=== PATIENT | male | born 1945 | race Caucasian/White ===

== ENCOUNTER 2016-09-27 16:59 | Observation (INO) | payer OTHER, MEDICARE ==
[~2016-09-27] VITALS: Ht 175.3 cm; Wt 124.7 kg
[~2016-09-27 16:59] MED LIST: AUGMENTIN 875875 MG PO; BUSPIRONE15 MG PEG; BUSPIRONE15 MG PO; DIAZEPAM10 MG PO; DIFLUCAN 100MG100 MG PEG; DILTIAZEM HYDR PEG; DULOXETINE60 MG PEG; DURAGESIC100 MCG TOP; LEVOTHROID0.05 MG PEG; LEVOTHROID0.05 MG PO; LIDOCAINE PATCH TOP; LISINOPRIL10 MG PO; LISINOPRIL20 MG PEG; LYRICA75 MG PEG; MORPHINE PEG; MORPHINE SULFAT15 MG PO; MS CONTIN 100M100 MG PO; MS CONTIN30 MG PO; MSIR PEG; MSIR PO; OMEPRAZOLE40 MG PEG; PENTOXIFYLLINE400 MG PEG; Senokot S PEG; VITAMIN C500 M3 PEG; VITAMIN C500 M3 PO; ZETIA10 MG PEG; ZINC SULFATE 2220 MG PEG; ZINC SULFATE 2220 MG PO
--- NOTE | 2016-09-27 17:04 | ED CARDIAC/CP/PALPITATIONS ---
See Addendum History of Present Illness General Chief Complaint: Chest Pain Stated Complaint: CHEST PAIN Source: patient Exam Limitations: no limitations Vital Signs & Intake/Output Vital Signs & Intake/Output Vital Signs Date Time Temp Pulse Resp B/P Pulse O2 O2 Flow FiO2 Ox Delivery Rate 09/27 2238 94 16 144/80 98 Nasal 2.0L Cannula 09/27 2058 97.7 79 18 155/92 99 Nasal 2.0L Cannula 09/277 100 Nasal 2.0L Cannula 09/28 1815 97.8 79 24 122/58 100 Nasal 2.0L Cannula 09/27 1711 28 97 Nasal 3.0L Cannula 09/27 1709 93 30 112/51 90 Room Air Room Air ED Intake and Output 09/28 0000 09/27 1200 Intake Total Output Total Balance Patient 275 lb Weight Allergies Coded Allergies: NO KNOWN ALLERGIES (03/10/13) Reconcile Medications Duloxetine HCl 60 MG CAPSULE.DR 1 CAP PO DAILY DEPRESSION (Reported) Gabapentin 600 MG TABLET 1 TAB PO TID NERVE PAIN (Reported) Levothyroxine Sodium 100 MCG TABLET 1 TAB PO DAILY THYROID (Reported) Lisinopril 20 MG TABLET 1 TAB PO DAILY BP (Reported) Omeprazole 40 MG CAPSULE.DR 1 CAP PO DAILY GI (Reported) Pentoxifylline 400 MG TABLET.ER 1 TAB PO DAILY BLOOD FLOW (Reported) Pravastatin Sodium 20 MG TABLET 1 TAB PO DAILY CHOLESTEROL (Reported) Trazodone HCl 100 MG TABLET 1 TAB PO QPM SLEEP (Reported) Triage Nurses Notes Reviewed? yes Onset: Gradual Duration: getting worse Timing: recent history Quality/Severity: severe, pressure Location: substernal Radiation: no radiation Activities at Onset: none Nitro Today/Relief: 0.4 mg x 2 Aspirin Today: 325 mg x 1 HPI: Patient is a 70-year-old male with a past medical history of atrial fibrillation not on anticoagulation due to fall risk and previous history of GI bleed, patient has multiple cervical and lumbar surgeries and chronic pain in which she also has chronic abdominal pain due to PEG tube placement from 2013 cervical spine surgery, hypertension, hyperlipidemia and hypothyroidism who presents emergency room brought in by ambulance for concerns of chest pain. Patient does state that approximately one month ago he was evaluated by his primary care DR. CRENSHAW for concerns of urinary tract infection and fevers where he was prescribed antibiotics however urinalysis he states was unremarkable. Patient states that this week he was feeling better however today he developed mild nausea and which he woke up from a nap the nausea had continued at 1300 where he was not feeling well began to feel lightheaded dizzy and weak where symptoms persisted or he then went to confucianism within suddenly patient had diaphoresis chest pressure, shortness of breath palpitations and presyncope symptoms. Noticing to be had occurred. Patient was brought in via EMS received 325 mill grams aspirin and 2 sublingual nitroglycerin with no improvement of his chest pressure. Patient still is complaining shortness of breath. Patient does have a previous IVC filter placement Denies any fever chills leg swelling hemoptysis cough Patient is a former smoker and a former alcohol dependency and opiate dependency who currently does not use this anymore. (MAUREEN INTERIANO) Past History Medical History Any Pertinent Medical History? see below for history Neurological: NONE EENT: NONE Cardiovascular: hypertension, hyperlipidemia Respiratory: NONE Gastrointestinal: GERD Hepatic: NONE Renal: NONE Musculoskeletal: chronic neck pain s/p surgery, on fentanyl patch and morphine Psychiatric: depression Endocrine: THYROID History of MRSA: No History of VRE: No History of CDIFF: No Pneumonia Vaccine: 06/22/12 Influenza Vaccine: 04/04/14 Tetanus Vaccine: 02/23/16 Surgical History Surgical History: neck surgery Psychosocial History Who do you live with Spouse Services at Home None What is your primary language Faroese Family History Family History, If Any: Relation not specified for: FH: lung cancer Hx Contributory? No (MAUREEN INTERIANO) Review of Systems Review of Systems Constitutional: Reports: see HPI. EENTM: Reports: no symptoms. Respiratory: Reports: see HPI, short of breath. Cardiovascular: Reports: see HPI, chest pain. GI: Reports: see HPI, nausea. Genitourinary: Reports: no symptoms. Musculoskeletal: Reports: see HPI, back pain. Skin: Reports: see HPI. Neurological/Psychological: Reports: no symptoms. Hematologic/Endocrine: Reports: no symptoms. Immunologic/Allergic: Reports: no symptoms. All Other Systems: Reviewed and Negative (MAUREEN INTERIANO) Physical Exam Physical Exam General Appearance: mild distress Cardiovascular: irregularly irregular Comments: HEENT: Normal EENT exam, extraocular motion intact, no nystagmus. Pupils equally round and reactive to light and accommodation. Nose is atraumatic. External auditory canal and Tympanic membranes clear. Pharynx normal. No swelling or edema. Neck: Supple, no lymphadenopathy, normal range of motion without pain or tenderness Back: Normal inspection generalized point tenderness noted Cardiovascular: Regular rate and rhythms no murmurs rubs or gallops, normal JVP Respiratory: Superficial substernal point tenderness noted. No respiratory distress.breath sounds clear to auscultation bilaterally Abdomen: Soft, generalized point tenderness noted nondistended, no appreciable organomegaly. Normal bowel sounds. No ascites Extremity: No edema, no calf tenderness to palpation, normal and equal pulses. Neuro: Alert oriented x3, motor sensory normal, Skin: No appreciable rash on exposed skin, skin is warm and dry. Psych: Mood and affect is normal, memory and judgment is normal. Core Measures ACS in differential dx? Yes ASA ordered for poss ACS? Yes-ordered Severe Sepsis Present: No Septic Shock Present: No (FRANCES SHEIKH,MAUREEN) Progress Differential Diagnosis: AMI, aortic dissection, atrial fibrillation, cholecystitis, CHF/pulm edema, costochondritis, hyperkalemia, hypovolemia, hyperthyroid, hyperventilation, intracranial hemorrhage, musculoskeletal pain, myocarditis, pancreatitis, pericarditis, pneumonia, pneumothorax, PSVT, pulmonary embolism, PUD/GERD, PVCs/PACs, respiratory failure, sepsis, unstable angina, V-fib/V-Tach, WPW syndrome Plan of Care: Orders Procedure Date/time Status Consistent Carbohydrate 3 09/28 B Active CBC WITHOUT DIFFERENTIAL 09/28 06 Active BASIC ELECTROLYTES PLUS BUN&CR 09/28 06 Active TROPONIN LEVEL 09/28 0530 Active EKG 09/28 0530 Active TROPONIN LEVEL 09/27 2330 Complete EKG 09/27 2330 Active Saline Lock 09/27 231 Active Pathway - chart 09/28 2311 Active House Staff 09/28 2311 Active CULTURE,URINE 09/28 2311 Active URINALYSIS 09/28 2311 Active Code Status 09/27 231 Active Patient Data 09/27 2129 Active OXYGEN SETUP (GEN) 09/27 2124 Active Saline Lock 09/[address] in observation 09/27 2124 Active Vital Signs 09/27 2124 Active Activity/Ambulation 09/27 2124 Active Code Status 09/27 2124 Complete THYROID STIMULATING HORMONE 09/27 1727 Active PHOSPHORUS 09/27 1727 Active FREE T4 09/27 1727 Active Telemetry/Supervisor Dog License Officer 09/27 1716 Active TROPONIN LEVEL 09/27 171 Active MAGNESIUM 09/27 1716 Active D-DIMER 09/27 171 Complete COMPREHENSIVE METABOLIC PANEL 09/27 171 Active CBC WITHOUT DIFFERENTIAL 09/28 1715 Complete Intake & Output 09/27 170 Active EKG 09/27 170 Active Lab Add-on Test 09/27 UNK Active VTE Mechanical Prophylaxis 09/27 UNK Active Vital Signs 09/27 UNK Active MISTAKE 09/27 UNK Active Intake & Output 09/27 UNK Active Hemoccult 09/27 UNK Active FingerStick- Glucose 09/27 UNK Active ECHOCARDIOGRAM 09/27 UNK Active Current Medications Sig/Telma Start time Last Medication Dose Stop Time Status Admin Trazodone HCl 100 MG QPM 09/28 2200 AC (Desyrel) Duloxetine HCl 60 MG DAILY 09/28 1000 AC (Cymbalta) Lisinopril 20 MG DAILY 09/28 1000 AC (Prinivil) Pentoxifylline 400 MG DAILY 09/28 1000 AC (Trental 400MG Tab) Pravastatin Sodium 20 MG DAILY 09/28 1000 AC (Pravachol) Levothyroxine Sodium 0.1 MG DAILY AC 09/28 0700 AC (Synthroid) Omeprazole 40 MG DAILY AC 09/28 0700 AC (Prilosec) Gabapentin 600 MG Q8 09/28 0600 AC (Neurontin) Acetaminophen 500 MG Q6P PRN 09/27 2315 AC (Tylenol) Acetaminophen/ 1 TAB Q6P PRN 09/27 2315 AC Hydrocodone Bitart (Vicodin) Oxycodone/ 2 TAB Q6P PRN 09/27 2315 AC Acetaminophen (Percocet) Laboratory Tests 09/27/16 2342: Troponin I < 0.01 09/27/16 1727: Anion Gap 13, Estimated GFR > 60, BUN/Creatinine Ratio 46.7 H, Glucose 105 H, Calcium 10.1, Phosphorus 4.4, Magnesium 1.9, Total Bilirubin 0.6, AST 33, ALT 42 , Alkaline Phosphatase 79, Troponin I < 0.01, Total Protein 7.9, Albumin 4.7, Globulin 3.2, Albumin/Globulin Ratio 1.5, TSH Pending, Free T4 1.27, D-Dimer 2856 H, CBC w Diff NO MAN DIFF REQ, RBC 4.30 L, MCV 93.0, MCH 30.9, RDW 15.6 H, MPV 9.7, Gran % 65.0, Lymphocytes % 22.2, Monocytes % 11.5 H, Eosinophils % 1.1, Basophils % 0.2, Absolute Granulocytes 6.1, Absolute Lymphocytes 2.1, Absolute Monocytes 1.1 H, Absolute Eosinophils 0.1, Absolute Basophils 0, PUBS MCHC 33.2 Microbiology 09/27 2312 URINE ROUT: Urine Culture - COLB Patient had EKG findings concerning for atrial fibrillation No ischemic changes noted on EKG first set of cardiac enzymes is unremarkable patient was administered sublingual nitroglycerin and nitroglycerin ointment with no relief of symptoms. Patient was given multiple doses of morphine with no change in chest pain. CT scan ruled out pulmonary embolism CT of abdomen showed no acute findings. Patient was advised to be admitted for telemetry observation for rule out ACS and he will comply. Discussed admission with (FRANCES SHEIKH,MAUREEN) Diagnostic Imaging: Viewed by Me: Radiology Read, CT Scan. Radiology Impression: SEE COMMENTS Initial ED EK BPM ATRIAL FIBRILLATION Comments: PATIENT: SRI BILLS PRESENT AGE: 70 PATIENT ACCOUNT NO: [id number] : 46 LOCATION: [facility] ORDERING PHYSICIAN: MAUREEN SHEIKH SERVICE DATE: 09/27/16 EXAM TYPE: CAT - CT ABD & PELVIS W IV CONTRAST EXAMINATION: CT ABDOMEN AND PELVIS WITH CONTRAST CLINICAL INFORMATION: Chest pain, abdominal pain COMPARISON: CT abdomen and pelvis 05/08/2014 TECHNIQUE: Multidetector volumetric imaging was performed of the abdomen and pelvis before and after the IV administration of 110 mL of Omnipaque 350 intravenous contrast. Sagittal and coronal reformatted images were obtained on the technologist's workstation. DLP: 1642.5, includes chest mGy-cm FINDINGS: LUNG BASES: The visualized lung bases are unremarkable. LIVER, GALLBLADDER, AND BILIARY TREE: The liver is normal in size, shape, and attenuation. No focal hepatic lesion. There is moderate intrahepatic biliary dilatation. The gallbladder is surgically absent. The common bile duct is normal in caliber. The degree of biliary dilatation is stable compared to 2013 PANCREAS: Unremarkable. SPLEEN: Unremarkable. ADRENAL GLANDS: Unremarkable. KIDNEYS AND URETERS: The kidneys enhance symmetrically. There is mild symmetric bilateral perinephric stranding. An exophytic cyst is present at the lower pole of the left kidney measuring up to 3.9 cm in size, previously 3.2 cm in size. An additional exophytic cyst is present at the lower pole of the right kidney measuring 3.5 cm in size, previously 3.4 cm in size. There are additional subcentimeter structures scattered throughout both kidneys which are too small to characterize but most likely represent cysts. There is no hydronephrosis. No radiodense stones. BLADDER: Unremarkable. GASTROINTESTINAL TRACT: The small and large bowel are unremarkable. The appendix is unremarkable. There are a few scattered diverticula. ABDOMINAL WALL: There is a left-sided fat-containing inguinal hernia. This is small in size. LYMPH NODES: Normal. VASCULAR: Unremarkable. PELVIC VISCERA: The prostate and seminal vesicles are unremarkable. OSSEOUS STRUCTURES: Deformity of the pubic symphysis and the rami on the left are consistent with prior trauma. There is posterior fusion of the L3-L5 vertebral bodies. The alignment of the vertebral bodies appears intact. There is no specific evidence for hardware loosening. Moderate degenerative changes are present throughout the visualized portions of the thoracic and lumbar spine. IMPRESSION: 1. No acute intra-abdominal or pelvic process to explain abdominal pain. 2. Mild interval enlargement of lower pole left renal cyst compared to 2014. 3. Stable moderate intrahepatic biliary dilatation. 4. Diverticulosis without CT evidence for acute diverticulitis. 5. Left inguinal fat-containing hernia. DICTATED BY: BALDEMAR REDDY MD PATIENT: SRI BILLS PRESENT AGE: 70 PATIENT ACCOUNT NO: [id number] : 46 LOCATION: [facility] ORDERING PHYSICIAN: MAUREEN SHEIKH SERVICE DATE: 09/27/16 EXAM TYPE: CAT - CTA CHEST-PULMONARY EMBOLISM EXAMINATION: CT ANGIOGRAM OF THE CHEST WITH AND WITHOUT CONTRAST (CT PULMONARY ANGIOGRAM FOR PE) CLINICAL INFORMATION: Reason for Study:
Presumptive Dx: CHEST PAIN, R/O PE
Signs Symptoms: CHEST PAIN, RM 7
COMPARISON: Same day chest x-ray, CT chest 06/08/2013 TECHNIQUE: Prior to contrast administration, noncontrast localization images were obtained. Subsequently, multidetector volumetric imaging was performed from the thoracic inlet to below the diaphragms following the administration of 110 mL Omnipaque 350 intravenous contrast. No contrast reaction reported. Sagittal, coronal, and MIP oblique sagittal reformatted images were obtained on the CT workstation, uploaded to PACS, and reviewed. Total exam dose-length product 1642.5, includes abdomen and pelvis mGy-cm. FINDINGS: QUALITY OF STUDY/CONTRAST BOLUS: Satisfactory PULMONARY ARTERIES: No central or segmental pulmonary emboli. THORACIC AORTA: No aneurysm or dissection. The ascending thoracic aorta measures up to 3.8 cm. This is similar compared to the 2013 study allowing for technical differences. LUNG: No focal consolidation, nodules or masses. PLEURA: No pleural effusion or pneumothorax. MEDIASTINUM: The main pulmonary artery measures 3.3 cm in diameter. The right left pulmonary arteries are enlarged in size. The heart is moderately enlarged. There is no significant pericardial effusion. Calcifications involving the left anterior descending coronary artery are present. There are no pathologically enlarged mediastinal or hilar lymph nodes. No evidence of septal bowing or right heart strain. CHEST WALL/AXILLA: No axillary or internal mammary lymphadenopathy. OSSEOUS STRUCTURES: There are diffuse mild to moderate degenerative changes of the thoracic spine. No acute fracture. UPPER ABDOMEN: Patient is status post cholecystectomy. Visualized portions of the upper abdomen are otherwise unremarkable. No reflux of contrast into the hepatic veins to suggest elevated right heart pressures. IMPRESSION: 1. No pulmonary embolism. 2. No acute cardiopulmonary process. 3. Mildly enlarged main pulmonary artery possibly suggesting underlying pulmonary hypertension. VTE: negative DICTATED BY: BALDEMAR REDDY MD DATE/TIME DICTATED:09/27/161952 [employer]OL[employer]UB ASSEMBLER:MATTHEW (MAUREEN INTERIANO) Departure Departure Disposition: STILL A PATIENT Condition: Stable Clinical Impression Primary Impression: Chest pain Secondary Impressions: Abdominal pain, Back pain, Pulmonary hypertension Referrals: JAEL CRENSHAW MD (PCP/Family) Departure Forms: Customer Survey General Discharge Information Observation Note Spoke With: VIRGIL BRIZUELA,GENNAROLaura Physician Advisor Notified: LOLITA BRIZUELA,PUSHPA [place] Patient In: Non-ED OBS Care Area Rationale for Observation: My rational for observation is as follows . (MAUREEN INTERIANO) PA/NAILING MACHINE FEEDER Co-Sign Statement Statement: ED Attending supervision documentation- x I saw and evaluated the patient. I have also reviewed all the pertinent lab results and diagnostic results. I agree with the findings and the plan of care as documented in the PA's/NAILING MACHINE FEEDER's documentation. [] I have reviewed the ED Record and agree with the PA's/NAILING MACHINE FEEDER's documentation. [] Additions or exceptions (if any) to the PAs/NAILING MACHINE FEEDER's note and plan are summarized below: [] (KYLE BRIZUELA,TARA) Critical Care Note Critical Care Note Critical Care Time: 30-74 min (FRANCES SHEIKH,MAUREEN)
--- NOTE | 2016-09-27 17:13 | NUR ---
TRIAGE: 70 Y/O MALE PRESENTS FROM [facility] WITH EPISODE OF CHEST PAIN. REPORTS LEFT SIDED REPRODUCIBLE CHEST PAIN. TOOK 2 NITRO AND 324MG ASPIRIN WITH NO RELIEF. PLACED ON SHOP LABORER. EKG IN PROGRESS. PLACED ON 3L SUPPLEMENTAL OXYGEN. HISTORY OF AFIB, AFIB ON MONITOR. RATE 90-110.
[2016-09-27] MEDS ORDERED: PRAVASTATIN SOD20 M2 PO (17:21)
[2016-09-27] MEDS ORDERED: TRAZODONE HCL100 M1 PO (17:21)
[2016-09-27] MEDS ORDERED: LISINOPRIL20 M1 PO (17:21)
[2016-09-27] MEDS ORDERED: DULOXETINE HCL60 MG PO (17:21)
[2016-09-27] MEDS ORDERED: GABAPENTIN600 M1 PO (17:22)
[2016-09-27] MEDS ORDERED: PENTOXIFYLLINE400 M1 PO (17:22)
[2016-09-27] MEDS ORDERED: LEVOTHYROXINE100 MC1 PO (17:22)
[2016-09-27] MEDS ORDERED: MATZIM LA360 M1 PO (17:23)
[2016-09-27] MEDS ORDERED: OMEPRAZOLE40 M1 PO (17:23)
--- NOTE | 2016-09-27 17:30 | NUR ---
2 SST, 1 LAV, 1 CARLSON, 1 BLUE TOP TUBE SENT TO LAB AT THIS TIME.
--- NOTE | 2016-09-27 17:35 | NUR ---
PORTABLE XRAY IN PROGRESS.
[2016-09-27 17:36] LABS: ABSOLUTE BASOPHIL COUNT 0 /CUMM (0.0-0.2); ABSOLUTE EOSINOPHIL COUNT 0.1 /CUMM (0.0-0.7); ABSOLUTE GRANULOCYTE CT 6.1 /CUMM (1.4-6.5); ABSOLUTE LYMPH COUNT 2.1 /CUMM (1.2-3.4); ABSOLUTE MONOCYTE COUNT 1.1 /CUMM (0.10-0.60); BASOPHIL % 0.2 % (0.0-2.0); EOSINOPHIL % 1.1 % (0-5); MEAN CORPUSCULAR HGB 30.9 PG (27.0-31.0); MEAN CORPUSCULAR HGB CONC 33.2 G/DL (33.0-37.0); MEAN PLATELET VOLUME 9.7 FL (7.4-10.4); PLATELET COUNT 171 /CUMM (130-400); RBC DISTRIBUTION WIDTH 15.6 % (11.5-14.5); WHITE BLOOD CELL COUNT 9.4 /CUMM (4.8-10.8)
--- NOTE | 2016-09-27 18:07 | RADIOLOGY REPORT ---
EXAMINATION: XR PORTABLE CHEST CLINICAL INFORMATION: Chest pain. COMPARISON: Chest x-ray 02/23/2016. TECHNIQUE: Portable AP view of the chest was obtained. FINDINGS: The lungs are hypoinflated, without focal airspace consolidation. No pleural effusions or pneumothoraces are identified. Cardiomediastinal contours are stable. There is stable mild prominence of the cardiac silhouette, without overt pulmonary edema. Soft tissues are unremarkable. No acute osseous abnormality is identified. IMPRESSION: No acute pulmonary process.
--- NOTE | 2016-09-27 18:47 | NUR ---
REMAINS RESTING AT THIS TIME.
--- NOTE | 2016-09-27 19:06 | NUR ---
PATIENT REMAINS IN CT SCAN
--- NOTE | 2016-09-27 20:06 | CT SCAN REPORT ---
EXAMINATION: CT ANGIOGRAM OF THE CHEST WITH AND WITHOUT CONTRAST (CT PULMONARY ANGIOGRAM FOR PE) CLINICAL INFORMATION: Reason for Study:
Presumptive Dx: CHEST PAIN, R/O PE
Signs Symptoms: CHEST PAIN, RM 7
COMPARISON: Same day chest x-ray, CT chest 06/08/2013 TECHNIQUE: Prior to contrast administration, noncontrast localization images were obtained. Subsequently, multidetector volumetric imaging was performed from the thoracic inlet to below the diaphragms following the administration of 110 mL Omnipaque 350 intravenous contrast. No contrast reaction reported. Sagittal, coronal, and MIP oblique sagittal reformatted images were obtained on the CT workstation, uploaded to PACS, and reviewed. Total exam dose-length product 1642.5, includes abdomen and pelvis mGy-cm. FINDINGS: QUALITY OF STUDY/CONTRAST BOLUS: Satisfactory PULMONARY ARTERIES: No central or segmental pulmonary emboli. THORACIC AORTA: No aneurysm or dissection. The ascending thoracic aorta measures up to 3.8 cm. This is similar compared to the 2013 study allowing for technical differences. LUNG: No focal consolidation, nodules or masses. PLEURA: No pleural effusion or pneumothorax. MEDIASTINUM: The main pulmonary artery measures 3.3 cm in diameter. The right left pulmonary arteries are enlarged in size. The heart is moderately enlarged. There is no significant pericardial effusion. Calcifications involving the left anterior descending coronary artery are present. There are no pathologically enlarged mediastinal or hilar lymph nodes. No evidence of septal bowing or right heart strain. CHEST WALL/AXILLA: No axillary or internal mammary lymphadenopathy. OSSEOUS STRUCTURES: There are diffuse mild to moderate degenerative changes of the thoracic spine. No acute fracture. UPPER ABDOMEN: Patient is status post cholecystectomy. Visualized portions of the upper abdomen are otherwise unremarkable. No reflux of contrast into the hepatic veins to suggest elevated right heart pressures. IMPRESSION: 1. No pulmonary embolism. 2. No acute cardiopulmonary process. 3. Mildly enlarged main pulmonary artery possibly suggesting underlying pulmonary hypertension. VTE: negative
--- NOTE | 2016-09-27 20:23 | CT SCAN REPORT ---
EXAMINATION: CT ABDOMEN AND PELVIS WITH CONTRAST CLINICAL INFORMATION: Chest pain, abdominal pain COMPARISON: CT abdomen and pelvis 05/08/2014 TECHNIQUE: Multidetector volumetric imaging was performed of the abdomen and pelvis before and after the IV administration of 110 mL of Omnipaque 350 intravenous contrast. Sagittal and coronal reformatted images were obtained on the technologist's workstation. DLP: 1642.5, includes chest mGy-cm FINDINGS: LUNG BASES: The visualized lung bases are unremarkable. LIVER, GALLBLADDER, AND BILIARY TREE: The liver is normal in size, shape, and attenuation. No focal hepatic lesion. There is moderate intrahepatic biliary dilatation. The gallbladder is surgically absent. The common bile duct is normal in caliber. The degree of biliary dilatation is stable compared to 2013 PANCREAS: Unremarkable. SPLEEN: Unremarkable. ADRENAL GLANDS: Unremarkable. KIDNEYS AND URETERS: The kidneys enhance symmetrically. There is mild symmetric bilateral perinephric stranding. An exophytic cyst is present at the lower pole of the left kidney measuring up to 3.9 cm in size, previously 3.2 cm in size. An additional exophytic cyst is present at the lower pole of the right kidney measuring 3.5 cm in size, previously 3.4 cm in size. There are additional subcentimeter structures scattered throughout both kidneys which are too small to characterize but most likely represent cysts. There is no hydronephrosis. No radiodense stones. BLADDER: Unremarkable. GASTROINTESTINAL TRACT: The small and large bowel are unremarkable. The appendix is unremarkable. There are a few scattered diverticula. ABDOMINAL WALL: There is a left-sided fat-containing inguinal hernia. This is small in size. LYMPH NODES: Normal. VASCULAR: Unremarkable. PELVIC VISCERA: The prostate and seminal vesicles are unremarkable. OSSEOUS STRUCTURES: Deformity of the pubic symphysis and the rami on the left are consistent with prior trauma. There is posterior fusion of the L3-L5 vertebral bodies. The alignment of the vertebral bodies appears intact. There is no specific evidence for hardware loosening. Moderate degenerative changes are present throughout the visualized portions of the thoracic and lumbar spine. IMPRESSION: 1. No acute intra-abdominal or pelvic process to explain abdominal pain. 2. Mild interval enlargement of lower pole left renal cyst compared to 2013. 3. Stable moderate intrahepatic biliary dilatation. 4. Diverticulosis without CT evidence for acute diverticulitis. 5. Left inguinal fat-containing hernia.
--- NOTE | 2016-09-27 21:03 | NUR ---
MEDICATED WITH 6MG MORPHINE.
--- NOTE | 2016-09-27 21:57 | History & Physical ---
KAREN BRIZUELA,[facility] 09/27/16 2156: General Information and HPI MD Statement: I have seen and personally examined SRI BILLS and documented this H&P. The patient is a 70 year old M who presented with a patient stated chief complaint of [weakness and lightheadedness]. Source of Information: patient Exam Limitations: no limitations History of Present Illness: Patient is a 70 year old gentleman with PMH of atrial fibrillation (not on anticoagulation due to fall risk and GI bleed), CAD, hypertension, hyperlipidemia, hypothyroidism, diabetes controlled with diet, multiple cervical and lumbar surgeries, BPH who was brought in to the ED due to weakness, lightheadedness and an episode of shortness of breath. Patient has been feeling weak almost for 2 weeks starting with upper respiratory infection symptoms followed by a diagnosis of UTI b his PCP (completed a 7 day course of ciprofloxacin yesterday). He reports being consistently weak and over the past 2 days reports episode of SOB especially at night time. Patient reports this pm at around 1:30 that he went out to attend [facility]. On his way he felt he has no energy, and was gasping air, also when he got there he was unable to tolerate standing after about 10 minutes, felt dizzy and short of breath and had cold sweats, also reports having heart racing. He was then brought to the ED. In the ED patient started to feel tightness and pressure on the chest at midline, with some radiation to the left side of the chest and shoulder. Denies SOB or cold sweats at the same time, reports worsening of the pain with breathing. Patient currently denies any chest pain, however reports that the pain comes back with deep breaths. Patient denies orthopnea, also currently denies dizziness, SOB, vision changes, palpitations, lower extremity swelling. He states that he had not such pain in the past except for the time he was admitted in april 2014 for abdominal pain. Allergies/Medications Allergies: Coded Allergies: NO KNOWN ALLERGIES (03/10/13) Home Med list Duloxetine HCl 60 MG CAPSULE.DR 1 CAP PO DAILY DEPRESSION (Reported) Gabapentin 600 MG TABLET 1 TAB PO TID NERVE PAIN (Reported) Levothyroxine Sodium 100 MCG TABLET 1 TAB PO DAILY THYROID (Reported) Lisinopril 20 MG TABLET 1 TAB PO DAILY BP (Reported) Omeprazole 40 MG CAPSULE.DR 1 CAP PO DAILY GI (Reported) Pentoxifylline 400 MG TABLET.ER 1 TAB PO DAILY BLOOD FLOW (Reported) Pravastatin Sodium 20 MG TABLET 1 TAB PO DAILY CHOLESTEROL (Reported) Trazodone HCl 100 MG TABLET 1 TAB PO QPM SLEEP (Reported) Past History Travel History Traveled to [place] past 21 day No Medical History Neurological: NONE EENT: NONE Cardiovascular: hypertension, hyperlipidemia Respiratory: NONE Gastrointestinal: GERD, persistent dysphagia, only eats soft foods Hepatic: NONE Renal: NONE Musculoskeletal: chronic neck pain s/p surgery, on fentanyl patch and morphine Psychiatric: depression Endocrine: THYROID History of MRSA: No History of VRE: No History of CDIFF: No Pneumonia Vaccine: 06/22/12 Influenza Vaccine: 04/04/14 Tetanus Vaccine: 02/23/16 Surgical History Surgical History: neck surgery Past Family/Social History Family History Relations & Conditions if any MOTHER FH: pancreatic cancer BROTHER FH: lung cancer Psychosocial History Services at Home: None Smoking Status: Former Smoker (quit 25 years ago) ETOH Use: denies use (since 20 years ago) Illicit Drug Use: denies illicit drug use Review of Systems Review of Systems Constitutional: Reports: diaphoresis, malaise, weakness. Denies: chills, fever, unexplained weight loss. EENTM: Reports: no symptoms. Cardiovascular: Reports: chest pain, palpitations. Denies: peripheral edema, syncope. Respiratory: Denies: cough, sputum production. GI: Reports: abdominal pain. Genitourinary: Reports: hematuria. Musculoskeletal: Reports: back pain. Skin: Reports: no symptoms. Neurological/Psychological: Reports: no symptoms. Hematologic/Endocrine: Reports: no symptoms. Immunologic/Allergic: Reports: no symptoms. Exam & Diagnostic Data Last 24 Hrs of Vital Signs/I&O Vital Signs Date Time Temp Pulse Resp B/P Pulse O2 O2 Flow FiO2 Ox Delivery Rate 09/28 0030 98.8 92 18 148/100 97 Nasal 2.0L Cannula 09/278 94 16 144/80 98 Nasal 2.0L Cannula 09/27 2058 97.7 79 18 155/92 99 Nasal 2.0L Cannula 09/27 1816 100 Nasal 2.0L Cannula 09/28 1815 97.8 79 24 122/58 100 Nasal 2.0L Cannula 09/27 1711 28 97 Nasal 3.0L Cannula 09/27 1709 93 30 112/51 90 Room Air Room Air Intake & Output 09/28 0800 09/28 0000 09/27 1600 Intake Total Output Total Balance Patient 124.738 kg Weight Physical Exam General Appearance Alert, Oriented X3, Cooperative, No Acute Distress Skin No Rashes, No Breakdown, scars of previous surgeries on the cervical spine, scar of a previous PEG tube placed temporarily in the previous admission in Apr 2014 HEENT Atraumatic, EOMI, Mucous Membr. moist/pink, pupils round reactive to light Neck Supple, No JVD Cardiovascular Normal S1, Normal S2, No Murmurs, irregular Lungs Clear to Auscultation, Normal Air Movement Abdomen Soft, generalized tenderness in the abdomen, present from the past, more prominent on the right lower and left lower quadrants, there is suprapubic tenderness as well. Neurological Normal Speech, Normal Tone, Cranial Nerves 3-12 NL Extremities Normal Pulses, trace pedal edema bilaterally Vascular Pulses Symmetrical Last 24 Hrs of Labs/Bg: Laboratory Tests 09/27/16 2342: Troponin I < 0.01 09/27/16 1727: Anion Gap 13, Estimated GFR > 60, BUN/Creatinine Ratio 46.7 H, Glucose 105 H, Calcium 10.1, Phosphorus 4.4, Magnesium 1.9, Total Bilirubin 0.6, AST 33, ALT 42 , Alkaline Phosphatase 79, Troponin I < 0.01, Total Protein 7.9, Albumin 4.7, Globulin 3.2, Albumin/Globulin Ratio 1.5, TSH 2.040, Free T4 1.27, D-Dimer 2856 H, CBC w Diff NO MAN DIFF REQ, RBC 4.30 L, MCV 93.0, MCH 30.9, RDW 15.6 H, MPV 9.7, Gran % 65.0, Lymphocytes % 22.2, Monocytes % 11.5 H, Eosinophils % 1.1, Basophils % 0.2, Absolute Granulocytes 6.1, Absolute Lymphocytes 2.1, Absolute Monocytes 1.1 H, Absolute Eosinophils 0.1, Absolute Basophils 0, PUBS MCHC 33.2 Microbiology 09/27 2312 URINE ROUT: Urine Culture - COLB Diagnostic Data CXR Results SERVICE DATE: 09/27/16-171 EXAM TYPE: RAD - XRY-PORTABLE CHEST XRAY EXAMINATION: XR PORTABLE CHEST CLINICAL INFORMATION: Chest pain. COMPARISON: Chest x-ray 02/23/2016. TECHNIQUE: Portable AP view of the chest was obtained. FINDINGS: The lungs are hypoinflated, without focal airspace consolidation. No pleural effusions or pneumothoraces are identified. Cardiomediastinal contours are stable. There is stable mild prominence of the cardiac silhouette, without overt pulmonary edema. Soft tissues are unremarkable. No acute osseous abnormality is identified. IMPRESSION: No acute pulmonary process. DICTATED BY: PEYMAN FERREIRA MD DATE/TIME DICTATED:09/27/161802 SUPERVISOR CORRESPONDENCE SECTION:MATTHEW DATE/TIME TRANSCRIBED:09/27/161802 Other Results SERVICE DATE: 09/27/16 EXAM TYPE: CAT - CTA CHEST-PULMONARY EMBOLISM EXAMINATION: CT ANGIOGRAM OF THE CHEST WITH AND WITHOUT CONTRAST (CT PULMONARY ANGIOGRAM FOR PE) CLINICAL INFORMATION: Reason for Study:
Presumptive Dx: CHEST PAIN, R/O PE
Signs Symptoms: CHEST PAIN, RM 7
COMPARISON: Same day chest x-ray, CT chest 06/08/2013 TECHNIQUE: Prior to contrast administration, noncontrast localization images were obtained. Subsequently, multidetector volumetric imaging was performed from the thoracic inlet to below the diaphragms following the administration of 110 mL Omnipaque 350 intravenous contrast. No contrast reaction reported. Sagittal, coronal, and MIP oblique sagittal reformatted images were obtained on the CT workstation, uploaded to PACS, and reviewed. Total exam dose-length product 1642.5, includes abdomen and pelvis mGy-cm. FINDINGS: QUALITY OF STUDY/CONTRAST BOLUS: Satisfactory PULMONARY ARTERIES: No central or segmental pulmonary emboli. THORACIC AORTA: No aneurysm or dissection. The ascending thoracic aorta measures up to 3.8 cm. This is similar compared to the 2013 study allowing for technical differences. LUNG: No focal consolidation, nodules or masses. PLEURA: No pleural effusion or pneumothorax. MEDIASTINUM: The main pulmonary artery measures 3.3 cm in diameter. The right left pulmonary arteries are enlarged in size. The heart is moderately enlarged. There is no significant pericardial effusion. Calcifications involving the left anterior descending coronary artery are present. There are no pathologically enlarged mediastinal or hilar lymph nodes. No evidence of septal bowing or right heart strain. CHEST WALL/AXILLA: No axillary or internal mammary lymphadenopathy. OSSEOUS STRUCTURES: There are diffuse mild to moderate degenerative changes of the thoracic spine. No acute fracture. UPPER ABDOMEN: Patient is status post cholecystectomy. Visualized portions of the upper abdomen are otherwise unremarkable. No reflux of contrast into the hepatic veins to suggest elevated right heart pressures. IMPRESSION: 1. No pulmonary embolism. 2. No acute cardiopulmonary process. 3. Mildly enlarged main pulmonary artery possibly suggesting underlying pulmonary hypertension. VTE: negative DICTATED BY: BALDEMAR REDDY MD DATE/TIME DICTATED:09/27/161952 SUPERVISOR CORRESPONDENCE SECTION:MATTHEW DATE/TIME TRANSCRIBED:09/27/161952 SERVICE DATE: 09/27/16 EXAM TYPE: CAT - CT ABD & PELVIS W IV CONTRAST EXAMINATION: CT ABDOMEN AND PELVIS WITH CONTRAST CLINICAL INFORMATION: Chest pain, abdominal pain COMPARISON: CT abdomen and pelvis 05/08/2014 TECHNIQUE: Multidetector volumetric imaging was performed of the abdomen and pelvis before and after the IV administration of 110 mL of Omnipaque 350 intravenous contrast. Sagittal and coronal reformatted images were obtained on the technologist's workstation. DLP: 1642.5, includes chest mGy-cm FINDINGS: LUNG BASES: The visualized lung bases are unremarkable. LIVER, GALLBLADDER, AND BILIARY TREE: The liver is normal in size, shape, and attenuation. No focal hepatic lesion. There is moderate intrahepatic biliary dilatation. The gallbladder is surgically absent. The common bile duct is normal in caliber. The degree of biliary dilatation is stable compared to 2013 PANCREAS: Unremarkable. SPLEEN: Unremarkable. ADRENAL GLANDS: Unremarkable. KIDNEYS AND URETERS: The kidneys enhance symmetrically. There is mild symmetric bilateral perinephric stranding. An exophytic cyst is present at the lower pole of the left kidney measuring up to 3.9 cm in size, previously 3.2 cm in size. An additional exophytic cyst is present at the lower pole of the right kidney measuring 3.5 cm in size, previously 3.4 cm in size. There are additional subcentimeter structures scattered throughout both kidneys which are too small to characterize but most likely represent cysts. There is no hydronephrosis. No radiodense stones. BLADDER: Unremarkable. GASTROINTESTINAL TRACT: The small and large bowel are unremarkable. The appendix is unremarkable. There are a few scattered diverticula. ABDOMINAL WALL: There is a left-sided fat-containing inguinal hernia. This is small in size. LYMPH NODES: Normal. VASCULAR: Unremarkable. PELVIC VISCERA: The prostate and seminal vesicles are unremarkable. OSSEOUS STRUCTURES: Deformity of the pubic symphysis and the rami on the left are consistent with prior trauma. There is posterior fusion of the L3-L5 vertebral bodies. The alignment of the vertebral bodies appears intact. There is no specific evidence for hardware loosening. Moderate degenerative changes are present throughout the visualized portions of the thoracic and lumbar spine. IMPRESSION: 1. No acute intra-abdominal or pelvic process to explain abdominal pain. 2. Mild interval enlargement of lower pole left renal cyst compared to 2014. 3. Stable moderate intrahepatic biliary dilatation. 4. Diverticulosis without CT evidence for acute diverticulitis. 5. Left inguinal fat-containing hernia. DICTATED BY: BALDEMAR REDDY MD DATE/TIME DICTATED:09/27/162002 SUPERVISOR CORRESPONDENCE SECTION:MATTHEW DATE/TIME TRANSCRIBED:09/27/162002 Assessment/Plan Assessment: Patient is a 70 year old gentleman with PMH of atrial fibrillation (not on anticoagulation due to fall risk and hx of GI bleed), CAD (with an unremarkable stress test 2 years ago), hypertension, hyperlipidemia, hypothyroidism, diabetes controlled with diet, multiple cervical and lumbar surgeries, BPH, who was brought in to the ED after an episode of near syncope, also complained of chest tightness and SOB. Problem list and plan: Near Syncope, Chest pain Accompanies by SOB, diaphoresis, lightheadedness. He has severe tenderness on the chest wall (left sided) as well as the left shoulder Rule out ACS and arrhythmias * telemetry monitoring * serial troponin and EKG * place cardiology consult for am * echocardiogram * continue statin, pt does not take aspirin due to hx of GIB Shortness of breath Etiologies: pulmonary and cardiac etiologies, including PE, ACS, CHF, lower respiratory infections, however saturating >97% on 2L oxygen, no crackles in the lungs, no coughs, trace LE edema, no JVD, not in respiratory distress, HR 79-94. CXR shows no acute pulmonary process. D-dimer is elevated, however patient's oxygen saturation improved with O2 supplementation and CTA came back negative for PE. Patient is a non-smoker, quit 25 years ago. * O2 supplementation as needed * will repeat echocardiogram Recent UTI completed 7 day course of ciprofloxacin yesterday, still reports blood-tinged urine, has suprapubic tenderness, no CVA tenderness * U/A DM diet controlled, not on any medication * check HbA1c HTN, HLD, hypothyroidism * lisinopril 20 mg daily * Pravastatin 20 ng daily * levothyroxine 0.1 mg daily * check lipid profile and TFT Chronic back pain history of multiple cervical and lumbar surgeries, patient has significant tenderness to touch on the left side of the chest. * Tylenol for mild pain, vicodin for moderate pain, percocet for severe pain Insomnia reports having trouble sleeping, takes trazodone 100 mg daily at night * continue trazodone Diet CC3 DVT px with SC heparin FULL CODE As Ranked By This Provider Problem List: 1. ATRIAL FIBRILATION 2. Benign essential hypertension 3. Hypercholesterolemia 4. Back pain 5. Abdominal pain 6. Chest pain Core Measures/Miscellaneous Acute Coronary Syndrome ACS Diagnosis: No Cerebrovascular Accident CVA/TIA Diagnosis: No Congestive Heart Failure CHF Diagnosis: No Venous Thromboembolism VTE Risk Factors: Acute medical illness, Age > 40 No [facility] VTE prophylaxis d/t: No contraindications No VTE Pharm Prophylaxis d/t: No contraindications VTE Diagnosis: No VTE Type: NONE VTE Confirmed by (Test): NONE Severe Sepsis Severe Sepsis Present: No Septic Shock Septic Shock Present: No Miscellaneous Documentation Attending Case Discussed With: SAMEER HERMAN MD Primary Care Physician: JAEL CRENSHAW MD Patient sees these Specialists Dr. Bellamy Level of Patient Care: Telemetry SA ZULLYUD 09/28/16 0126: Resident Review Statement Resident Statement: examined this patient, discussed with internet researcher, agreed with internet researcher, reviewed EMR data (avail), reviewed images, amended to note Other Findings: This is a 70 year old gentleman with past medical history of atrial fibrillation (not on anticoagulation due to fall risk and GI bleed), CAD, hypertension, hyperlipidemia diabetes controlled not on current medication with diet, multiple cervical and lumbar surgeries, BPH status post TURP. Present to the emergency department with a chief complain off generalized weakness, lightheaded associated with difficulty in breathing. Patient reports history of upper respiratory infection 2 weeks ago followed by UTI that was treated with ciprofloxacin patient complete his antibiotic course. Patient also reports left -sided chest pain that did not improve with morphine and sublingual nitroglycerin in the emergency department. Also he reports feeling dizzy shortness of breath and reporting heart tracing with cold sweat. Physical examination, lab and imaging as above. Assessment: -Chest pain/shortness of breath: Giving the patient comorbidities and social history, patient will need to be ruled out for any underlying acute coronary syndrome. Also will need echocardiogram and cardiology consultation. CTA that was done in the emergency department came back negative for any sign of PE. -Dizziness: That could be most likely secondary to vasovagal versus cardiac in origin giving the patient history of atrial fibrillation. Orthostatic vital signs need to be checked. -History of UTI: Patient complete total course of ciprofloxacin yesterday, patient is still complaining of change in his urine color, will need UA. -Chronic back pain: Patient stated that he had an appointment with the pain clinic on 08/12/2016 patient stated that his previous pain regimen that he was on was controlling his pain Well. Plan: -Admit patient to telemetry floor -Vitals every shift, I and O's, -Check orthostatic vital signs -Serial troponin and EKG to rule out ACS -Check TSH, free T4, magnesium -Echocardiogram, cardiology consultation a.m. -Urine analysis, urine culture, U tox -Continue his home medication -Carbohydrate consistent diet, Accu-Chek, no insulin sliding scale -Pain pathway -DVT prophylaxis: subcutaneous heparin -Full code VIRGIL BRIZUELA, [facility] 09/28/16 0548: Attending MD Review Statement Attending Statement Attending MD Statement: examined this patient, discuss w/resident/PA/MECHANICAL DRAFTER, agreed w/resident/PA/MECHANICAL DRAFTER Attending Assessment/Plan: 70 yo morbidly obese M with h/o chronic pain syndrome s/p multiple lumbar and cervical spine surgeries, most recently cervical diskectomy (2013) that was c/b dysphagia requiring PEG placement (eventually removed), Afib not on AC 2/2 GIB and falls, HTN, CAD, presents for evaluation of episode of weakness, diaphoresis , chest pressure, dyspnea and lightheadedness while at [facility] yesterday. He received aspirin and 2 sublingual nitros without relief of pain. His Cripple Cutter is Dr. Bellamy. His last appt was Mar 2016 when he had a carotid doppler as outpatient, denies having an echo done then. Of note, patient reports generalized weakness for over 2 weeks since he was diagnosed with a UTI and treated with Ciprofloxacin. He has chronic abdominal pain. Vitals stable except for hypertension. Labs: BUN 28, glucose 105, trop neg, TFT normal, D-dimer elevated. EKG: SR. CXR: neg. CT Abd/pelvis: no acute pathology. CTA: no PE, pulmonary hypertension. EKG: Afib. Echo (2013): EF > 55%. 1. Near syncope and chest pain. Tele Obs to rule out ACS, monitor for arrhythmias, serial EKG and troponin, obtain Echo and Cardio consult. Continue aspirin 81 mg daily. Check orthostats. Check lipid panel, HbA1c. 2. Chronic pain syndrome with h/o opiate dependence. Patient's PCP does not prescribe pain medications anymore, hence patient is scheduled to see a pain specialist in the future for pain management. Check UA and Utox. DVT ppx Hep SC. Full code.
--- NOTE | 2016-09-27 22:39 | NUR ---
PT REMAINS IN AFIB ON CM. REPORTS 01/29 MID CHEST PAIN "LIKE A BRICK IS ON IT" VSS. AWAKE/ALERT WITH EASY WOB.
--- NOTE | 2016-09-27 22:47 | NUR ---
PT IS GOING TGO 187-1
--- NOTE | 2016-09-27 22:47 | NUR ---
HOUSESTAFF AT BEDSIDE FOR EVAL
--- NOTE | 2016-09-27 23:30 | NUR ---
REPORT TO DOMINGA ANDERS.
--- NOTE | 2016-09-27 23:31 | NUR ---
RADHA MARTINO AT BEDSIDE FOR REPEAT TROP AND EKG.
[2016-09-28 00:30] VITALS: BP 148/100
[2016-09-28 06:12] LABS: ABSOLUTE BASOPHIL COUNT 0 /CUMM (0.0-0.2); ABSOLUTE EOSINOPHIL COUNT 0.1 /CUMM (0.0-0.7); ABSOLUTE GRANULOCYTE CT 5.1 /CUMM (1.4-6.5); ABSOLUTE LYMPH COUNT 2.3 /CUMM (1.2-3.4); ABSOLUTE MONOCYTE COUNT 0.8 /CUMM (0.10-0.60); BASOPHIL % 0.2 % (0.0-2.0); EOSINOPHIL % 1.1 % (0-5); GRANULOCYTE % 60.8 % (42.2-75.2); HEMATOCRIT 35.9 % (42-52); MEAN CORPUSCULAR HGB 31.2 PG (27.0-31.0); MEAN CORPUSCULAR HGB CONC 33.6 G/DL (33.0-37.0); MEAN CORPUSCULAR VOLUME 92.8 FL (80.0-94.0); MEAN PLATELET VOLUME 9.6 FL (7.4-10.4); PLATELET COUNT 151 /CUMM (130-400); RBC DISTRIBUTION WIDTH 15.4 % (11.5-14.5); RED BLOOD CELL CT 3.87 /CUMM (4.70-6.10); WHITE BLOOD CELL COUNT 8.4 /CUMM (4.8-10.8)
[2016-09-28 08:13] VITALS: BP 167/100
--- NOTE | 2016-09-28 09:53 | PN- Housestaff ---
CJ BRIZUELA,KERI 09/28/16 0953: Subjective Follow-up For: Chest pain under evaluation Complaints: severe left-sided chest pain,episode of syncope Tele-Events Since Last Visit: Atrial fibrillation, heart rate between 78-90, episode of 23 beats of V. tach at 4:50AM, Subjective: Patient is seen and examined at the bedside. He was complaining of severe chest pain which is located on the left side of the chest and radiating to the left side of the arm. The pain was burning in nature and aggravated by touching the skin. He was saying that he was getting MSIR from his PCP, but recently in July he stopped giving him. He he is enrolled in pain management program and his next appointment is on September. Review of Systems Constitutional: Reports: weakness. Cardiovascular: Reports: chest pain, orthopena, palpitations. Denies: peripheral edema. Respiratory: Reports: orthopnea, short of breath. Gastrointestinal: Denies: abdominal pain, constipation, diarrhea. Genitourinary: Denies: no symptoms. Musculoskeletal: Denies: no symptoms. Skin: Denies: no symptoms. Objective Last 24 Hrs of Vital Signs/I&O Vital Signs Date Time Temp Pulse Resp B/P Pulse O2 O2 Flow FiO2 Ox Delivery Rate 09/28 2129 99 112/84 09/28 1600 98.6 88 16 112/84 98 Room Air 09/28 1430 96 Nasal 3.0L Cannula 09/28 0943 167/100 09/28 0813 98.4 87 16 167/100 98 Room Air 09/28 0800 96 Nasal 2.0L Cannula 09/28 0030 98.8 92 18 148/100 97 Nasal 2.0L Cannula 09/27 2238 94 16 144/80 98 Nasal 2.0L Cannula Intake & Output 09/28 1600 09/28 0800 09/28 0000 Intake Total 400 Output Total 600 Balance -200 Intake, Oral 400 Output, Urine 600 Patient 124.738 kg 124.738 kg Weight Physical Exam General Appearance: Alert, Oriented X3, Cooperative, Severe Distress Skin: No Rashes, No Breakdown Cardiovascular: Normal S1, Normal S2, murmur present Lungs: mild bilateral basilar crackles Abdomen: Soft, No Tenderness Neurological: Normal Speech, burning pain on left side of the chest and left hand. Extremities: No Clubbing, No Cyanosis, No Edema Vascular: Normal Pulses, Pulses Symmetrical Current Medications: Current Medications Sig/Telma Start time Last Medication Dose Route Stop Time Status Admin Acetaminophen 500 MG Q6P PRN 09/27 2315 AC PO Acetaminophen/ 1 TAB Q6P PRN 09/27 2315 AC 09/28 Hydrocodone Bitart PO 1119 Aspirin Buffered 81 MG DAILY 09/28 1045 AC 09/28 PO 1516 Duloxetine HCl 60 MG DAILY 09/28 1000 AC 09/28 PO 0943 Gabapentin 300 MG Q8 09/28 1400 AC 09/28 PO 2129 Gabapentin 600 MG Q8 09/28 0600 DC 09/28 PO 0621 Heparin Sodium 0 .STK-MED ONE 09/27 2335 DC (Porcine) .ROUTE Heparin Sodium 5,000 UNIT Q8 09/27 2252 AC 09/28 (Porcine) SC 2150 Hydromorphone HCl 1 MG ONCE ONE 09/28 1400 DC 09/28 IV 09/28 1401 1400 Levothyroxine Sodium 0.1 MG DAILY AC 09/28 0700 AC 09/28 PO 0621 Lisinopril 20 MG DAILY 09/28 1000 AC 09/28 PO 0943 Lorazepam 1 MG ONCE ONE 09/28 1400 DC 09/28 IV 09/28 1401 1400 Metoprolol Tartrate 12.5 MG BID 09/28 2200 AC 09/28 PO 2129 Morphine Sulfate 4 MG ONCE ONE 09/28 1230 DC 09/28 IV 09/28 1231 1230 Nitroglycerin 0.4 MG ONCE ONE 09/28 1230 DC 09/28 SL 09/28 1231 1341 Omeprazole 40 MG DAILY AC 09/28 0700 AC 09/28 PO 0620 Ondansetron HCl 4 MG ONCE ONE 09/28 1400 DC 09/28 IV 09/28 1401 1400 Oxycodone/ 2 TAB Q6P PRN 09/27 2315 AC 09/28 Acetaminophen PO 2134 Patient Medication 1 UNIT ONE NR 09/28 2000 DC Teaching ED 09/28 2030 Pentoxifylline 400 MG DAILY 09/28 1000 AC 09/28 PO 0943 Pravastatin Sodium 20 MG DAILY 09/28 1000 AC 09/28 PO 0943 Pregabalin 75 MG TID 09/28 1600 AC 09/28 PO 2129 Tramadol HCl 50 MG Q6-PRN PRN 09/28 1400 AC 09/28 PO 1750 Trazodone HCl 100 MG QPM 09/28 2199 AC 09/28 PO 2129 Last 24 Hrs of Lab/Bg Results Last 24 Hrs of Labs/Mics: Laboratory Tests 09/28/16 1800: Troponin I < 0.01 09/28/16 1320: Anion Gap 11, Estimated GFR > 60, BUN/Creatinine Ratio 31.7 H, Total Bilirubin 0.8, Direct Bilirubin 0.2, AST 29, ALT 40, Alkaline Phosphatase 71, Total Protein 6.8, Albumin 4.0, PT 11.6, INR 1.11 09/28/16 1225: Troponin I < 0.01 09/28/16 0520: Troponin I < 0.01 09/28/16 0520: Anion Gap 6, Estimated GFR > 60, BUN/Creatinine Ratio 48.0 H, Hemoglobin A1c Pending, Phosphorus 4.6 H, Magnesium 1.8, Triglycerides 105, Cholesterol 140, LDL Cholesterol, Calc 55 L, HDL Cholesterol 64 H, Cholesterol/HDL Ratio 2, CBC w Diff NO MAN DIFF REQ, RBC 3.87 L, MCV 92.8, MCH 31.2 H, RDW 15.4 H, MPV 9.6 , Gran % 60.8, Lymphocytes % 27.9, Monocytes % 10.0 H, Eosinophils % 1.1, Basophils % 0.2, Absolute Granulocytes 5.1, Absolute Lymphocytes 2.3, Absolute Monocytes 0.8 H, Absolute Eosinophils 0.1, Absolute Basophils 0, PUBS MCHC 33.6 09/27/16 2342: Troponin I < 0.01 09/27/162311: Urine Color Cancelled, Urine Clarity Cancelled, Urine pH Cancelled, Ur Specific [place] Cancelled, Urine Protein Cancelled, Urine Ketones Cancelled, Urine Nitrite Cancelled, Urine Bilirubin Cancelled, Urine Urobilinogen Cancelled, Ur Leukocyte Esterase Cancelled, Ur Microscopic Cancelled, Urine Hemoglobin Cancelled, Urine Glucose Cancelled Microbiology 09/28 2311 URINE ROUT: Urine Culture - CAN Cancelled: SPECIMEN NOT RECEIVED IN LABORATORY Assessment/Plan Assessment: Patient is a 70 year old gentleman with PMH of atrial fibrillation (not on anticoagulation due to fall risk and hx of GI bleed), CAD (with an unremarkable stress test 2 years ago), hypertension, hyperlipidemia, hypothyroidism, diabetes controlled with diet, multiple cervical and lumbar surgeries, BPH, who was brought in to the ED after an episode of near syncope, also complained of chest tightness and SOB. Chest x-ray -no acute cardiopulmonary abnormality CTA-negative for PE and an acute cardiopulmonary process,enlarged pulmonary artery, probably secondary to pulmonary hypertension CT Abdomen and pelvis - 1. No acute intra-abdominal or pelvic process to explain abdominal pain. 2. Mild interval enlargement of lower pole left renal cyst compared to 2014. 3. Stable moderate intrahepatic biliary dilatation. 4. Diverticulosis without CT evidence for acute diverticulitis. 5. Left inguinal fat-containing hernia. Problem list - Chest pain under evaluation Atrial fibrillation not on anticoagulation due to fall risk, and GI bleed Pulmonary hypertension Hypertension Hyperlipidemia Hypothyroidism diabetes controlled with diet, multiple cervical and lumbar surgeries, BPH, Plan - Severe chest pain - * Chest x-ray showed no any acute cardiopulmonary abnormality, * D-dimer -2856 * CTA of chest is negative for PE * Serial EKG shows no any new changes, * serial troponins were negative * He has an episode of monomorphic V. tach, discussed with Dr. vieyra, as elevated as monomorphic in nature. It seems patient has chronic eschar rather than acute cardiopulmonary abnormality. Although with the EKG cannot rule out left circumflex involvement. We will do echocardiogram to see any wall motion abnormality * Echocardiogram shows LVEF 55-60%, there was no any wall motion abnormality. * It to rule out cardiac cause of chest pain * We placed a consult for neurologist. Discussed with Dr. Clark over the phone. * He think if it is a neuropathic pain than Morphine/Dilaudid will not be helpful. It seems that his pain is not controlled with the gabapentin. He advised - * MRI thoracic spine * Decrease the dose of gabapentin to 300mg TID * Start him on tablet Lyrica 75 mg TID, Tablet tramadol 50mg 1-2 tab Q6PRN. * Will follow-up tomorrow/or call him whenever needed * Follow the recommendation of product lister/neurologist * We will get all the records from his product lister at [place] * We will continue all home medication * We started patient on tab metoprolol 12.5 mgs BID Diet- carbohydrate type 2 DVT prophylaxis -ALP S/heparin CODE STATUS- full code Problem List: 1. Chest pain of uncertain etiology 2. Hypertension 3. Hyperlipidemia 4. Hyperlipidemia 5. Hypothyroidism Pain Ratin Pain Location: Left-sided chest and arm Pain Goal: Remain pain free Pain Plan: Moderate to severe Tomorrow's Labs & Rationales: not required DVT/Prophylaxis: mechanical, pharmacological FREEMAN GILLESPIE MD 09/28/16 1412: Attending MD Review Statement Attending Statement Attending MD Statement: examined this patient, discuss w/resident/PA/CITY LIBRARY DIRECTOR, agreed w/resident/PA/CITY LIBRARY DIRECTOR, reviewed EMR data (avail) Attending Assessment/Plan: 70M PMH atrial fibrillation not on anticoagulation due to fall risk and hx of GI bleed, non-obstructive CAD, HTN, HLD, T2DM, chronic pain syndrome admitted for syncope and left sided chest pain. Today patient is having intermittent episodes of left sided chest and arm pain that is reproducible and not associated with exertion, shortness of breath, lightheadedness, or palpitations. Initial and repeat EKG have no acute changes, and troponin negative x2. Overnight had 29-beat run of NSVT, during which he felt lightheaded. On exam, patient is diffusely tender to touch, normal cardiac and lung exam. Plan - Admit to inpatient for NSVT and left sided chest pain - Continue to monitor telemetry - Repeat EKG and troponin - Obtain echocardiogram - Cardiology consult - Start Metoprolol 12.5mg BID and increase as HR tolerates - Continue home medications - DVT PPx
[2016-09-28 13:59] LABS: PT 11.6 SEC (9.4-12.5)
--- NOTE | 2016-09-28 14:10 | Event Note ---
Event Note Event Note: The pain in the left side of the chest on the hand, constant, burning in nature was not responding to IV morphine, IV Dilaudid, IV Ativan and nitroglycerin. Serial EKGs and troponins were negative. Discussed with Dr. vieyra and he thinks, as this chest pain is lasting for more than 30 minutes, and during this chest pain there is no EKG changes, and troponins were negative. It doesnt sounds due to cardiac in origin. Monomorphic VT episode, he had in the morning, probably due to old scar. We will follow-up with the echocardiogram. We placed a consult from Dr. lCark. Discussed with him over the phone. He advised - * MRI thoracic spine * Decrease the dose of gabapentin to 300mg TID * Start him on tablet Lyrica 75 mg TID, Tablet tramadol 50mg 1-2 tab Q6PRN. * Will follow-up tomorrow/or call him whenever needed
[2016-09-28 16:00] VITALS: BP 112/84
--- NOTE | 2016-09-28 18:29 | ECHOCARDIOGRAM REPORT ---
SRI BILLS Age: 70 : 1945 Gender: M Exam Date: 09/28/2016 13:43 Exam Location: [address] [facility] Ht (in): 72 Wt (lb): 275 BSA: 2.56 BP: 167 / 100 Ordering Physician: DERRICK ANDREA MD Referring Physician: En Bellamy M.D. Technologist: Renay Zamorano RDCS Room Number: [id number] Indications: CHEST PAIN Rhythm: Technical Quality: fair FINDINGS Left Ventricle Normal size left ventricle. Left ventricular wall thickness mildly increased. Normal left ventricular ejection fraction estimated at 55-60%. Right Ventricle Normal right ventricular size and function. Right Atrium Normal right atrial size. Left Atrium Left atrial size at the upper limits of normal. Mitral Valve Mild mitral annular calcification. Trace to mild mitral regurgitation. Aortic Valve Aortic sclerosis. No aortic stenosis. Tricuspid Valve Tricuspid valve is normal in structure and function. Right ventricular systolic pressure estimated to be within the normal range at 20 mmHg. Pulmonic Valve Pulmonic valve not well visualized, grossly normal. Pericardium No pericardial effusion. Great Vessels Mildly dilated proximal ascending aorta (tube). CONCLUSIONS Normal left and right ventricular systolic function with mild left ventricular systolic function. No significant valvular abnormalities noted. Oumar Wyatt M.D. (Electronically Signed) Final Date: 28 September 2016 18:29 MEASUREMENTS (Male / Female) Normal Values 2D ECHO LV Diastolic Diameter PLAX 4.8 cm 4.2 - 5.9 / 3.9 - 5.3 cm LV Systolic Diameter PLAX 3.2 cm 2.1 - 4.0 cm LV Fractional Shortening PLAX 33.3 % 25 - 46 % LV Ejection Fraction 2D Teich 61.9 % IVS Diastolic Thickness 1.3 cm LVPW Diastolic Thickness 1.3 cm LV Relative Wall Thickness 0.5 RV Internal Dim ED PLAX 2.0 cm 1.9 - 3.8 cm LVOT Diameter 2.3 cm Aortic Root Diameter 4.1 cm LA Systolic Diameter LX 2.6 cm 3.0 - 4.0 / 2.7 - 3.8 cm LA Volume 69.6 cm 18 - 58 / 22 - 52 cm LA Volume Index 27.1 cm/m 16 - 28 cm/m Ascending Aorta Diameter 3.8 cm DOPPLER AV Peak Velocity 194.0 cm/s AV Peak Gradient 15.1 mmHg AV Mean Velocity 164.0 cm/s AV Mean Gradient 12.0 mmHg AV Velocity Time Integral 44.7 cm LVOT Peak Velocity 86.5 cm/s LVOT Peak Gradient 3.0 mmHg LVOT Mean Velocity 62.5 cm/s LVOT Mean Gradient 2.0 mmHg LVOT Velocity Time Integral 15.3 cm LVOT Stroke Volume 63.6 cm AV Area Cont Eq vti 1.4 cm AV Area Cont Eq pk 1.9 cm MV Peak Velocity 85.8 cm/s MV Peak Gradient 2.9 mmHg MV Mean Velocity 44.3 cm/s MV Mean Gradient 1.0 mmHg Mitral E Point Velocity 84.9 cm/s MV PHT Velocity 92.1 cm/s MV Deceleration Morrison 469.0 cm/s MV Pressure Half Time 58.9 ms MV Area PHT 3.7 cm MV Deceleration Time 219.0 ms TR Peak Velocity 194.0 cm/s TR Peak Gradient 15.1 mmHg Right Atrial Pressure 5.0 mmHg Pulmonary Artery Systolic Pressu 20.1 mmHg Right Ventricular Systolic Press 20.1 mmHg PV Peak Velocity 124.0 cm/s PV Peak Gradient 6.2 mmHg PV Mean Velocity 53.1 cm/s PV Mean Gradient 1.0 mmHg PV Velocity Time Integral 25.0 cm LV E' Lateral Velocity 17.5 cm/s Mitral E to LV E' Lateral Ratio 4.9 LV E' Septal Velocity 12.9 cm/s Mitral E to LV E' Septal Ratio 6.6
--- NOTE | 2016-09-28 20:23 | NUR ---
NURSING NOTE AT 12:30 TODAY, THE PT STATED SEVERE CHEST PX 03/31. BP 119/85. DR. HICKEY MADE AWARE. ORDERED 4MG MORPHINE. I ADMINISTERED. NO RELIEF. ORDERED NITRO SUBLING. GIVEN, NO RELIEF. TOLD TO GIVE ANOTHER, I GAVE, NO RELIEF. ORDERED 1MG DILAUDID, I GAVE, WITH NO RELIEF. TOUCHED PTS RIB, HAD SEVERE PX. SUSPECTED NEUROPATHIC PX. PT HAD HX OF MANY BACK/NECK SURGERIES, NOW PRESENTS WITH - TROPS X3, AND PX UPON PALPATION. DR. MENDES MADE AWARE. DOES NOT SUSPECT CARDIAC RELATED. DR. HICKEY ORDERED 1MG ATIVAN. DELIVED WITH RELIEF. PT DROWSY. BP CHECKED 2 MINS PRIOR AND 120/73, THEN AFTER ADMINISTRATION DROPPED TO 86/60. CALLED RAPID RESPONSE. RESPONSE CAME. EKG SHOWED NO ACUTE CHANGES, PT PUT IN TRANDELENBERG, BP BLUE TO 120/73. PT'S PX UNDERCONTROLL AND BP BACK TO NORMAL AT 1315.
[2016-09-29 01:17] VITALS: BP 118/68
[2016-09-29 08:03] VITALS: BP 140/92
--- NOTE | 2016-09-29 10:50 | PN- Housestaff ---
Subjective Follow-up For: Chest pain under evaluation Complaints: pain in the left side of the chest Tele-Events Since Last Visit: Atrial fibrillation, 4 beats of V. tach at 4 a.m., heart rate between 74-97 Subjective: Vision is seen and examined at the bedside. He was complaining of chest pain similar in nature as before. We discussed the plan for today. He denies for any difficulty in the breathing, nausea, vomiting, fever, constipation. Review of Systems Constitutional: Reports: weakness. Cardiovascular: Reports: chest pain. Respiratory: Reports: cough, short of breath. Gastrointestinal: Reports: abdominal pain, bloating, constipation. Genitourinary: Denies: no symptoms. Musculoskeletal: Denies: no symptoms. Skin: Denies: no symptoms. Neurological/Psychological: Reports: anxiety, depressed. Objective Last 24 Hrs of Vital Signs/I&O Vital Signs Date Time Temp Pulse Resp B/P Pulse O2 O2 Flow FiO2 Ox Delivery Rate 09/29 1723 98.7 09/29 1713 110 20 140/78 97 Nasal 3.0L Cannula 09/29 1008 97.5 90 20 140/92 09/29 1008 97.5 90 20 140/92 09/29 0803 97.5 90 20 140/92 99 Nasal 3.0L Cannula 09/29 0800 98 Nasal 3.0L Cannula 09/29 0117 98.0 89 18 118/68 97 Nasal 3.0L Cannula 09/29 0000 96 Nasal 3.0L Cannula 09/28 2129 99 112/84 Intake & Output 09/29 1600 09/29 0800 09/29 0000 Intake Total 500 480 480 Output Total 275 350 Balance 225 480 130 Intake, Oral 500 480 480 Output, Urine 275 350 Physical Exam General Appearance: Alert, Oriented X3, Cooperative, Mild Distress Cardiovascular: Normal S1, Normal S2 Lungs: mild bilateral basilar crackles Abdomen: Soft, No Tenderness Neurological: burning pain on the left part of the chest and left hand Extremities: No Clubbing, No Cyanosis, No Edema Vascular: Normal Pulses, Pulses Symmetrical Current Medications: Current Medications Sig/Telma Start time Last Medication Dose Route Stop Time Status Admin Acetaminophen 500 MG Q6P PRN 09/27 2315 AC PO Acetaminophen/ 1 TAB Q6P PRN 09/27 2315 AC 09/29 Hydrocodone Bitart PO 1337 Aspirin Buffered 81 MG DAILY 09/28 1045 AC 09/29 PO 1007 Duloxetine HCl 60 MG DAILY 09/28 1000 AC 09/29 PO 1007 Gabapentin 300 MG Q8 09/28 1400 AC 09/29 PO 1330 Heparin Sodium 5,000 UNIT Q8 09/27 2252 AC 09/29 (Porcine) SC 1331 Levothyroxine Sodium 0.1 MG DAILY AC 09/28 0700 AC 09/29 PO 0607 Lidocaine 1 PAT DAILY 09/29 1513 AC EXT Lisinopril 20 MG DAILY 09/28 1000 AC 09/29 PO 1008 Magnesium Oxide 400 MG BID 09/28 2229 AC 09/29 PO 1007 Metoprolol Tartrate 12.5 MG BID 09/28 2200 AC 09/29 PO 1008 Omeprazole 40 MG DAILY AC 09/28 0700 AC 09/29 PO 0607 Oxycodone/ 2 TAB Q6P PRN 09/27 2315 AC 09/29 Acetaminophen PO 1720 Patient Medication 1 UNIT ONE NR 09/29 1999 HI Teaching ED 09/28 2030 Pentoxifylline 400 MG DAILY 09/28 1000 AC 09/29 PO 1008 Pravastatin Sodium 20 MG DAILY 09/28 1000 AC 09/29 PO 1008 Pregabalin 75 MG TID 09/28 1600 AC 09/29 PO 1720 Tramadol HCl 50 MG Q6-PRN PRN 09/28 1400 AC 09/29 PO 0600 Trazodone HCl 100 MG QPM 09/28 2200 AC 09/28 PO 2129 Assessment/Plan Assessment: Patient is a 70 year old gentleman with PMH of atrial fibrillation (not on anticoagulation due to fall risk and hx of GI bleed), CAD (with an unremarkable stress test 2 years ago), hypertension, hyperlipidemia, hypothyroidism, diabetes controlled with diet, multiple cervical and lumbar surgeries, BPH, who was brought in to the ED after an episode of near syncope, also complained of chest tightness and SOB. Chest x-ray -no acute cardiopulmonary abnormality CTA-negative for PE and an acute cardiopulmonary process,enlarged pulmonary artery, probably secondary to pulmonary hypertension CT Abdomen and pelvis - 1. No acute intra-abdominal or pelvic process to explain abdominal pain. 2. Mild interval enlargement of lower pole left renal cyst compared to 2014. 3. Stable moderate intrahepatic biliary dilatation. 4. Diverticulosis without CT evidence for acute diverticulitis. 5. Left inguinal fat-containing hernia. Problem list - Chest pain under evaluation Atrial fibrillation not on anticoagulation due to fall risk, and GI bleed Pulmonary hypertension Hypertension Hyperlipidemia Hypothyroidism diabetes controlled with diet, multiple cervical and lumbar surgeries, BPH, Plan - Severe chest pain - * Chest x-ray showed no any acute cardiopulmonary abnormality, * D-dimer -2856 * CTA of chest is negative for PE * Serial EKG shows no any new changes, * serial troponins were negative * He has an episode of monomorphic V. tach, discussed with Dr. vieyra, as elevated as monomorphic in nature. It seems patient has chronic eschar rather than acute cardiopulmonary abnormality. Although with the EKG cannot rule out left circumflex involvement. We will do echocardiogram to see any wall motion abnormality * Echocardiogram shows LVEF 55-60%, there was no any wall motion abnormality. * It to rule out cardiac cause of chest pain * We placed a consult for neurologist. Discussed with Dr. Clark over the phone. * He think if it is a neuropathic pain than Morphine/Dilaudid will not be helpful. It seems that his pain is not controlled with the gabapentin. He advised - * MRI thoracic spine * Decrease the dose of gabapentin to 300mg TID * Start him on tablet Lyrica 75 mg TID, Tablet tramadol 50mg 1-2 tab Q6PRN. * Will follow-up tomorrow/or call him whenever needed * Follow the recommendation of log sorting supervisor/neurologist * We will get all the records from his log sorting supervisor at [place] * We will continue all home medication * We started patient on tab metoprolol 12.5 mgs BID Diet- carbohydrate type 2 DVT prophylaxis -ALP S/heparin CODE STATUS- full code Problem List: 1. Chest pain of uncertain etiology Pain Ratin Pain Location: Left side of the chest Pain Goal: Remain pain free Pain Plan: [id number] Tomorrow's Labs & Rationales: Not required DVT/Prophylaxis: mechanical, pharmacological
[2016-09-29 17:13] VITALS: BP 140/78
--- NOTE | 2016-09-29 17:43 | MRI REPORT ---
EXAMINATION: MR CERVICAL SPINE WITHOUT CONTRAST MR THORACIC SPINE WITHOUT CONTRAST MR LUMBAR SPINE WITHOUT CONTRAST CLINICAL INFORMATION: Burning pain on left side in chest. Radiculopathy. COMPARISON: MRI cervical spine from 04/14/2014. Additional imaging of the lumbar spine was offline and unavailable for review. TECHNIQUE: Multiplanar, multisequence imaging was obtained without intravenous administration of contrast. The study is limited due to motion artifacts. FINDINGS: CERVICAL SPINE: The patient is status post multilevel anterior cervical discectomy and fusion from the C3 through C7 levels with an accentuated cervical kyphosis. There is a subluxation at C7-T1. Moderate loss of disc height from the C7 through T2 levels is evident. There are fusion changes between the facet joints at multiple levels as well in the cervical spine. No paraspinal fluid collection is seen. The imaged lung apices are clear. The craniovertebral junction appears normal. The imaged portions of the brain parenchyma demonstrate no acute abnormality. Although limited by motion artifacts, no definite cord signal changes are seen. There are multilevel wide laminectomy defects throughout the cervical spine. Multilevel foraminal narrowing is evident due to osseous spurring. Bony spurring at the C6 level mildly distorts the ventral cord. THORACIC SPINE: There is a rightward curvature of the thoracic spine. A mild chronic-appearing superior endplate compression deformity is noted at the T5 level. There are no acute compression fractures or subluxations. Multilevel disc bulges are present with mild impression upon the ventral thecal sac. There are small disc protrusions at various levels as well with minimal thecal sac distortion. Hypertrophic facet arthropathy is most notable at the T9 through L1 levels with [id number] foraminal encroachment. No definite intrinsic cord signal abnormality is seen. There is no syrinx. There is a left subarticular zone disc protrusion at T12-L1 which partially extends into the neural foramen with minimal ventral cord deformity and potential mass effect upon the left T12 nerve root. Exuberant facet arthropathy and thickening of the ligamentum flavum is also present with moderate central canal stenosis. The paraspinal soft tissues are unremarkable. The imaged portions of the lungs are clear. LUMBAR SPINE: Hardware in place posteriorly results in significant magnetic distortion from the L3 through L5 levels. There are no definite compression fractures. At the L1-L2 level, there is a right paracentral protrusion and diffuse disc bulge with hypertrophic facet arthropathy and thickening of the ligamentum flavum resulting in abiy-eo-orqvoxzk central canal stenosis with thecal sac distortion. There are partial fusion changes across the left SI joint. At the L2-L3 level, there is significant susceptibility artifact though a disc bulge and facet arthropathy contribute to suspected moderate central canal stenosis with thecal sac deformity. Fusion changes are partially visualized at the L3-L4 level with hardware artifacts. The L4-L5 disc space is not well assessed, though the canal appears patent. There is moderate facet arthropathy at L5-S1 but no significant visible disc disease. IMPRESSION: Limited study due to hardware artifacts and patient motion. CERVICAL SPINE: Status post multilevel anterior cervical discectomy and fusion with hardware instrumentation and posterior wide laminectomies from the C3 through C7 levels. Kyphotic curvature of the cervical spine with moderate spondylosis. No intrinsic cord signal abnormalities. THORACIC SPINE: Ujfj-[id number] spondylosis with disc bulges and facet arthropathy and a rightward curvature of the thoracic spine. Moderate central canal stenosis at T12-L1 with a left subarticular zone disc protrusion potentially impinging upon the left T12 nerve root. LUMBAR SPINE: Status post posterior lumbar fusion with hardware instrumentation from L3 through L5 resulting in significant artifacts. Right paracentral disc protrusion at L1-L2 with zbqg-wx-kacoezde central canal stenosis and facet arthropathy. Suspected moderate central canal stenosis at L2-L3 due to spondylosis, not well assessed due to magnetic distortions from hardware.
--- NOTE | 2016-09-29 18:31 | PN- Att Addend ---
Attending MD Review Statement Attending Statement Attending MD Statement: examined this patient, discuss w/resident/PA/ADULT MINISTRIES DIRECTOR, agreed w/resident/PA/ADULT MINISTRIES DIRECTOR, reviewed EMR data (avail), discussed w/nursing, discussed w/ case mgmt Attending Assessment/Plan: Vital Signs Date Time Temp Pulse Resp B/P Pulse O2 O2 Flow FiO2 Ox Delivery Rate 09/29 1723 98.7 09/29 1713 110 20 140/78 97 Nasal 3.0L Cannula 09/29 1008 97.5 90 20 140/92 09/29 1008 97.5 90 20 140/92 09/29 0803 97.5 90 20 140/92 99 Nasal 3.0L Cannula 09/29 0800 98 Nasal 3.0L Cannula 09/29 0117 98.0 89 18 118/68 97 Nasal 3.0L Cannula 09/29 0000 96 Nasal 3.0L Cannula 09/28 2129 99 112/84 Patient seen and examined at bedside. Discussed with patient the care plan. Patient has significant chest wall tenderness and hyperalgesia on Slight Touch. We have started him on Lidoderm patch. Patient denies any history of shingles. I reviewed the patient's MRI of the cervical thoracic and lumbar spine and that does not explain the patient's hyperalgesia in the chest wall area. Patient will be observed in the hospital and likely discharge tomorrow morning if his pain is in better control. His serial troponins have been negative and CK level was also 61.
[2016-09-30 00:40] VITALS: BP 136/68
--- NOTE | 2016-09-30 07:24 | PN- Housestaff ---
See Addendum Subjective Follow-up For: Chest pain Tele-Events Since Last Visit: Atrial fibrillation HR 70-82 No telemetry events Subjective: No acute events overnight. Patient seen and examined this morning. He continues to have persistent chest pain. He also complains of pain around his umbilicus wrapping around his left abdomen. Patient reports that he is currently not taking any narcotics for the pain. CT CASH APPLICATIONS COORDINATOR database shows that he was last prescribed 30 day supply of Fentanyl patch on 07/25/16 and has not been prescribed any controlled substances since then. Review of Systems Constitutional: Reports: see HPI. Objective Last 24 Hrs of Vital Signs/I&O Vital Signs Date Time Temp Pulse Resp B/P Pulse O2 O2 Flow FiO2 Ox Delivery Rate 09/30 910 130/60 09/30 910 130/60 09/30 08 99 Nasal 3.0L Cannula 09/30 0806 97.7 77 20 132/74 99 Nasal 3.0L Cannula 09/30 0040 98.5 89 20 136/68 96 Nasal Cannula 09/30 0000 Nasal 3.0L Cannula 09/29 2249 92 132/70 09/29 1723 98.7 09/29 1713 110 20 140/78 97 Nasal 3.0L Cannula 09/29 1600 97 Nasal 3.0L Cannula Intake & Output 09/30 1600 09/30 0800 09/30 0000 Intake Total 400 100 400 Output Total 800 450 320 Balance -400 -350 80 Intake, Oral 400 100 400 Number 0 Bowel Movements Output, Urine 800 450 320 Physical Exam General Appearance: Alert, Oriented X3, No Acute Distress HEENT: Mucous Membr. moist/pink Cardiovascular: Regular Rate, Normal S1, Normal S2, Anterior Chest Tender to Palpation Lungs: Clear to Auscultation Abdomen: Soft, Positive Bowel Sounds, Mild Diffuse Tenderness to Palpation Extremities: No Clubbing, No Cyanosis, No Edema Current Medications: Current Medications Sig/Telma Start time Last Medication Dose Route Stop Time Status Admin Acetaminophen 500 MG Q6P PRN 09/27 2314 DCD PO Acetaminophen/ 1 TAB Q6P PRN 09/27 2314 DCD 09/30 Hydrocodone Bitart PO 0533 Aspirin Buffered 81 MG DAILY 09/28 1045 DCD 09/30 PO 09 Duloxetine HCl 60 MG DAILY 09/28 1000 DCD 09/30 PO 910 Gabapentin 300 MG Q8 09/28 1400 DCD 09/30 PO 0533 Heparin Sodium 5,000 UNIT Q8 09/27 2252 DCD 09/30 (Porcine) SC 0533 Levothyroxine Sodium 0.1 MG DAILY AC 09/28 0700 DCD 09/30 PO 0536 Lidocaine 1 PAT DAILY 09/29 1513 DCD 09/30 EXT 0919 Lisinopril 20 MG DAILY 09/28 1000 DCD 09/30 PO 0911 Magnesium Oxide 400 MG BID 09/28 2229 DCD 09/30 PO 0911 Metoprolol Tartrate 12.5 MG BID 09/28 2200 DCD 09/30 PO 0911 Omeprazole 40 MG DAILY AC 09/28 0700 DCD 09/30 PO 0536 Oxycodone/ 2 TAB Q6P PRN 09/27 2315 DCD 09/30 Acetaminophen PO 0912 Pentoxifylline 400 MG DAILY 09/28 1000 DCD 09/30 PO 0911 Pravastatin Sodium 20 MG DAILY 09/28 1000 DCD 09/30 PO 0911 Pregabalin 75 MG TID 09/28 1600 DCD 09/30 PO 0912 Tramadol HCl 50 MG Q6-PRN PRN 09/28 1400 DCD 09/29 PO 0600 Trazodone HCl 100 MG QPM 09/28 2200 DCD 09/29 PO 2248 Orders Radiology Findings: MRI WITH CONTRAST: CERVICAL SPINE: Status post multilevel anterior cervical discectomy and fusion with hardware instrumentation and posterior wide laminectomies from the C3 through C7 levels. Kyphotic curvature of the cervical spine with moderate spondylosis. No intrinsic cord signal abnormalities. THORACIC SPINE: Epit-yd-xsgvhkoh spondylosis with disc bulges and facet arthropathy and a rightward curvature of the thoracic spine. Moderate central canal stenosis at T12-L1 with a left subarticular zone disc protrusion potentially impinging upon the left T12 nerve root. LUMBAR SPINE: Status post posterior lumbar fusion with hardware instrumentation from L3 through L5 resulting in significant artifacts. Right paracentral disc protrusion at L1-L2 with [id number]-sa-[id number] central canal stenosis and facet arthropathy. Suspected moderate central canal stenosis at L2-L3 due to spondylosis, not well assessed due to magnetic distortions from hardware. Assessment/Plan Assessment: 70 y/o M with PMHx of chronic pain syndrome s/p multiple lumbar and cervical spine surgeries, atrial fibrillation and CAD who is admitted for near syncope and chest pain. #Chest pain: Pain is most likely neuropathic in etiology. MRI of C-spine, T- spine and L-spine with multilevel degenerative changes. Moderate central canal stenosis at T12-L1 with disc protrusion with potential impingement on the left T12 nerve root which could explain the pain radiating laterally from umbilicus in a dermatomal fashion. * Neurosurgeon Dr. Cueto was consulted who personally reviewed the images and suggested that patient can be discharged today and follow up with him as outpatient. Outpatient referral provided on discharge. * Lidocaine patch, Voltaren 1% gel and Lyrica 75 mg PO TID added to discharge medications for pain control. * Patient will stop taking gabapentin on discharge. * Patient instructed to follow up with PCP, cardiology and neurology on discharge. #Atrial fibrillation: Heart rate well-controlled. * Patient will continue taking metoprolol 12.5 mg PO BID on discharge. Diet: Consistent Carbohydrate 3 DVT PPx: HSQ and ALPs CODE: FULL Problem List: 1. Thoracic nerve root impingement 2. Neuropathic pain of chest 3. ATRIAL FIBRILATION Pain Ratin Pain Location: Chest Pain Goal: Pain 4 or less Pain Plan: Lidocaine patch Lyrica 75 mg PO TID Gabapentin 300 mg PO Q8H Percocet 1 tab PO Q6H PRN for severe pain (scale 7-10) Vicodin 1 tab PO Q6H PRN for moderate pain (scale 4-6) Tramadol 50 mg PO Q6H PRN for mild pain (scale 1-3) Tylenol 500 mg PO Q6H PRN for mild pain (scale 1-3) Tomorrow's Labs & Rationales: None Discharge Plan Discharge Disposition: home Stable for Discharge? Yes Anticipated Discharge (Day): today
[2016-09-30 08:06] VITALS: BP 132/74
[2016-09-30] MEDS ORDERED: LIDODERM1 EACH EXT (08:42)
[2016-09-30] MEDS ORDERED: LYRICA75 M1 PO (08:42)
[2016-09-30] MEDS ORDERED: MAGNESIUM OXID400 M1 PO (08:42)
[2016-09-30] MEDS ORDERED: GABAPENTIN300 M2 PO (08:42)
[2016-09-30] MEDS ORDERED: METOPROLOL TART25 M1 PO (08:42)
--- NOTE | 2016-09-30 08:45 | Patient Discharge Instructions ---
Discharge Instructions General Discharge Information You were seen/treated for: You are here for chest pain, probably secondary to neuropathy Special Instructions: please follow up with your PCP. Please follow up with your neurologist. Please follow up with youe bulk pigment reducer. Please see neurosurgeon Dr. Miguel Cueto regarding possible thoracic (left T12) nerve root impingement which could be contributing to your pain. Diet Continue normal diet: No Recommended Diet: Heart Healthy Acute Coronary Syndrome Inclusion Criteria At DC or during hospital stay patient has or had the following: ACS DIAGNOSIS No Discharge Core Measures Meds if any: Prescribed or Continued at Discharge Meds if any: NOT Prescribed or Continued at Discharge Congestive Heart Failure Inclusion Criteria At DC or during hospital stay patient has or had the following: CHF DIAGNOSIS No Discharge Core Measures Meds if any: Prescribed or Continued at Discharge Meds if any: NOT Prescribed or Continued at Discharge Cerebrovascular accident Inclusion Criteria At DC or during hospital stay patient has or had the following: CVA/TIA Diagnosis No Discharge Core Measures Meds if any: Prescribed or Continued at Discharge Meds if any: NOT Prescribed or Continued at Discharge Venous thromboembolism Inclusion Criteria VTE Diagnosis No VTE Type NONE VTE Confirmed by (Test) NONE Discharge Core Measures - Per Current guidelines, there needs to be overlap - treatment for the first 5 days of Warfarin therapy. - If discharged on Warfarin prior to 5 days of - overlap therapy, the patient will need to be - assessed for post discharge needs including - *Post discharge parental anticoagulation - *Warfarin and/or parental anticoagulation education - *Follow up date to check INR post discharge At least 5 days overlap therapy as Inpatient No Meds if any: Prescribed or Continued at Discharge Warfarin No Note: Overlap Therapy is Warfarin and Anticoagulant Meds if any: NOT Prescribed or Continued at Discharge
[2016-09-30 09:11] VITALS: BP 130/60
[2016-09-30] MEDS ORDERED: VOLTAREN100 GM TOP (09:53)
== END 2016-09-30 15:10 | disposition home health service (06) ==
LOC: ENRESERVDT → ENRESERVTM → ERH 16:59 → ERHI 21:25 → 1NO 21:25 → ENPENDDIS 21:25 → 1NO 09-28 00:02
PROVIDERS: Internal Medicine; Internal Medicine Hematology & Oncology; Physician Assistant; ADMIT Student in an Organized Health Care Education/Training Program
DX: I48.91 Unspecified atrial fibrillation (principal); R07.9 Chest pain, unspecified; I10 Essential (primary) hypertension; I25.10 Atherosclerotic heart disease of native coronary artery without angina pectoris; E78.5 Hyperlipidemia, unspecified; E03.9 Hypothyroidism, unspecified; G89.28 Other chronic postprocedural pain; M51.24 Other intervertebral disc displacement, thoracic region; M48.04 Spinal stenosis, thoracic region; K21.9 Gastro-esophageal reflux disease without esophagitis; K40.90 Unilateral inguinal hernia, without obstruction or gangrene, not specified as recurrent; Z79.82 Long term (current) use of aspirin; Z87.891 Personal history of nicotine dependence; Z80.1 Family history of malignant neoplasm of trachea, bronchus and lung; Z80.8 Family history of malignant neoplasm of other organs or systems; E11.9 Type 2 diabetes mellitus without complications
CPT/HCPCS: 1328; 1530; 72141; 72146; 72148; 36415; 74177; 80307; 82436; 87086; 93005; 93010; 93306; 96372; 96374; 96375; 96376; G0378; J1170; J1644; J2060; J2405; J3490